=== PATIENT | male | born 1955 | race Caucasian/White ===

== ENCOUNTER 2017-10-04 21:19 | Emergency (ER) | payer OTHER ==
[2017-10-04 21:23] VITALS: BP 153/86; PULSE 77; TEMP 98.4; BMI 22.0
--- NOTE | 2017-10-04 21:30 | PDOC ---
Rapid Medical Evaluation Chief Complaint: Head/Neck problem Time Seen by Provider: 10/04/17 21:24 Medical Evaluation: Allergies Allergy/AdvReac Type Severity Reaction Status Date / Time No Known Allergies Allergy Verified 10/04/17 21:22 Vital Signs Temp Pulse Resp BP Pulse Ox 98.4 F 77 18 153/86 100 10/04/17 21:21 10/04/17 21:21 10/04/17 21:21 10/04/17 21:21 10/04/17 21:21 10/04/17 21:25 complain: Patient with h/o HTN present with complains of mild pain to forehead with laceration after tripping and hitting his head at home this afternoon. Denies LOC. Denies dizziness, blurry vision, change in vision. Denies being on anticoagulation therapy. exam: A& O X3 in NAD. mild tenderness and swelling to right side of forehead with superficial 2cm linear laceration with no bleeding over area of swelling to forehead. normal gait order: nothing f/u patient will proceed to ED for further evaluation Discharge Disposition - Diagnosis Head contusion Qualifiers: Encounter type: initial encounter Contusion of head detail: unspecified part of head Qualified Code(s): S00.93XA - Contusion of unspecified part of head, initial encounter Forehead laceration Qualifiers: Encounter type: initial encounter Qualified Code(s): S01.81XA - Laceration without foreign body of other part of head, initial encounter - Referrals - Patient Instructions - Post Discharge Activity
--- NOTE | 2017-10-04 23:56 | PDOC ---
History of Present Illness - General Chief Complaint: Head/Neck problem Stated Complaint: INJURY Time Seen by Provider: 10/04/17 21:24 - History of Present Illness Initial Comments: 10/05/17 03:25 62 year old with a history of HTN, asthma and sciatica who presents Past History - Past Medical History Allergies/Adverse Reactions: Allergies Allergy/AdvReac Type Severity Reaction Status Date / Time No Known Allergies Allergy Verified 10/04/17 21:22 Home Medications: Ambulatory Orders Famotidine [Pepcid] 20 mg PO BID #20 tablet 10/05/17 Naproxen Sodium [Aleve] 220 mg PO BID PRN #20 tablet 10/05/17 COPD: No HTN: Yes - Suicide/Smoking/Psychosocial Hx Smoking History: Never smoked *Physical Exam - Vital Signs Last Vital Signs Temp Pulse Resp BP Pulse Ox 98.4 F 77 18 153/86 100 10/04/17 21:21 10/04/17 21:21 10/04/17 21:21 10/04/17 21:21 10/04/17 21:21 *DC/Admit/Observation/Transfer Diagnosis at time of Disposition: Head contusion Qualifiers: Encounter type: initial encounter Contusion of head detail: unspecified part of head Qualified Code(s): S00.93XA - Contusion of unspecified part of head, initial encounter Forehead laceration Qualifiers: Encounter type: initial encounter Qualified Code(s): S01.81XA - Laceration without foreign body of other part of head, initial encounter - Discharge Dispostion Disposition: HOME Condition at time of disposition: Stable Decision to Admit order: No - Prescriptions Prescriptions: Famotidine [Pepcid] 20 mg PO BID #20 tablet Naproxen Sodium [Aleve] 220 mg PO BID PRN #20 tablet PRN Reason: Back Pain - Referrals Referrals: ON STAFF,NOT [Primary Care Provider] - - Patient Instructions Additional Instructions: You were seen in the ED for a minor head injury. In the ED you were evaluated with a full neurological exam that was unremarkable. There does not appear to be need for immediate hospitalization. It is recommended that stop taking aspirin for pain relief. You will be given a prescription for pain relief and antacid. You are advised to follow up with your primary care physician within 1-2 weeks. Return to the ED immediately if you experience nausea, vomiting, loss of consciousness, fevers, chest pain or shortness of breathe. - Post Discharge Activity
--- NOTE | 2017-10-05 00:14 | PDOC ---
Attending Attestation - Resident Resident Name: JimConnie porterie - ED Attending Attestation I have performed the following: I have examined & evaluated the patient, The case was reviewed & discussed with the resident, I agree w/resident's findings & plan, Exceptions are as noted - Medical Decision Making 10/05/17 00:13 62yoM no pmhx however, takes 650mg ASA daily for sciatica pain presents w/ superficial cut to forhead while running down hallway. No loc, no fall to ground , no neuro sxs, no e/o concussion. - discussed ASA is not a pain medicine. Switch to aleve + pepcid - DC. Cut does not need sutures. <Arlen Carrillo - Last Filed: 10/05/17 00:13> - HPI HPI: 10/05/17 01:02 The patient is a 62 year old male with a past medical history of hypertension and sciatica who presents to the emergency department for evaluation of forehead laceration. The patient reports mild forehead pain after slipping and hitting his head against a wall while running to the bathroom in his house today. He denies loss of consciousness, significant head trauma, or falling to the floor. Patient states the laceration had minimal bleeding. He reports taking 2x 325mg of aspirin for sciatic pain daily. The patient denies chest pain, shortness of breath, headache, and dizziness. Denies fever, chills, nausea, vomiting, diarrhea, and constipation. Denies urinary urgency/frequency, dysuria, and hematuria. Allergies: NKDA. Social History: No reported alcohol, cigarette, or drug use. Surgical History: Denies. - Physicial Exam PE: NAD EOMI, LIDYA (+)1cm superficial cut to forehead. MMM, OP WNL NCAT, no midline cervical tenderness RRR, nl s1/s2, no m/r/g CTABL, no w/r/r Soft, NTND No edema, WWP, no rash Neuro grossly intact, gait WNL, moving all 4 A&O x 3, mood/affect WNL. <Nava Castro - Last Filed: 10/05/17 01:03> Attestations - Attestations Documentation prepared by Nava Castro, acting as medical assistant instructor for Arlen Carrillo MD. <Nava Castro - Last Filed: 10/05/17 01:03>
== END 2017-10-05 01:01 | disposition home or self-care (01) ==
LOC: JERFT 21:19 → JER 21:19
DX: S01.81XA Laceration without foreign body of other part of head, initial encounter (principal); W01.0XXA Fall on same level from slipping, tripping and stumbling without subsequent striking against object, initial encounter; Y93.89 Activity, other specified; Y92.9 Unspecified place or not applicable; I10 Essential (primary) hypertension
CPT/HCPCS: 99281-25